=== PATIENT | male | born 1940 | race Caucasian/White ===

== ENCOUNTER → 2019-07-20 | Outpatient (CLI) | payer MEDICARE ==
--- NOTE | 2019-07-23 06:55 | PE ---
EXAMINATION TYPE: PET CT fusion skull to thigh DATE OF EXAM: 07/20/2019 COMPARISON: No prior CT or PET/CT at this institution HISTORY: History of colon cancer treated surgically 2017 and bladder cancer treated surgically 2018. Completed chemotherapy 2017. Lung Nodules. TECHNIQUE: Following the intravenous administration of 13.318 mCi of F-18 FDG, whole body images are performed from the skull base to the midthigh. Images are reviewed on the computer in the coronal, axial, and sagittal planes. Reconstructed rotating images are created on independent workstation and reviewed on the computer. A noncontrast CT is performed in conjunction with the PET scan. SCAN: Subsequent Scan FINDINGS: SKULL BASE AND NECK: No areas of suspicious hypermetabolic uptake. CHEST, MEDIASTINUM, AND HILAR REGION: Scattered subcentimeter nodules for reference superior posterio r left lower lobe measuring 6 x 4 mm axial image 95 and 6 x 4 mm left mid lung nodule centrally axial image 98 with additional scattered subcentimeter lymph nodes throughout the right lung for reference 7 mm right lower lobe nodule axial image 121. No areas of abnormal hypermetabolic uptake are present in these subcentimeter nodules or remainder of thorax. ABDOMEN AND PELVIS: There is right inguinal hernia containing portion of bladder. There is abnormal m ild to moderate concentric wall thickening with more prominent soft tissue density in the herniated b ladder. There is focus of hypermetabolic uptake inferiorly axial image 252 with max SUV of 7.99 noted . Anterior to this there is small thin-walled fluid collection present. No additional areas of abnormal hypermetabolic uptake are present. OSSEOUS STRUCTURES: No areas of abnormal hypermetabolic uptake are present. OTHER CT: Mild cardiomegaly is present. There is moderate size hiatal hernia posterior to the heart. Dependent small calcified gallstones in gallbladder. Surgical changes from right-sided partial colect sunil. Diverticula in the sigmoid colon. Multilevel spurring in the thoracolumbar spine. Disc space narrowing L3-L4 and L4-L5 levels. IMPRESSION: Suspected herniated bladder right inguinal region with suspicious hypermetabolic uptake i nferiorly suspicious for neoplastic recurrence as appears to correspond to soft tissue density on cor responding CT. No hypermetabolic uptake in scattered subcentimeter pulmonary nodules but they remain suspicious for hematologic metastatic disease due to lower lung distribution. Correlation should be m gerda with old outside CT and/or PET/CT noting they are even more suspicious if they are new or enlargi ng from prior studies.
== END | disposition home or self-care (01) ==
LOC: RADPETMAIN 10:59
PROVIDERS: ATTEND Internal Medicine Hematology & Oncology
DX: R91.1 Solitary pulmonary nodule (principal); C67.8 Malignant neoplasm of overlapping sites of bladder
CPT/HCPCS: 78815; A9552